=== PATIENT | male | born 1960 | race Caucasian/White ===

== ENCOUNTER 2020-03-11 05:55 | Day surgery (SDC) | payer MEDICARE, OTHER ==
[~2020-03-11] VITALS: Ht 188 cm; Wt 76.2 kg
[~2020-03-11 05:55] MED LIST: AMIO200T68 PO; APIX5TAB PO; ASPE90C TP; ASPI-728 PO; ATOR10TA84 PO; CHLO3800 PO; DOXA2TAB PO; ESCI-8 PO; FLUT220HFA IH; FOLI-130 PO; GABA-1216 PO; IPRA4AER IH; LACT100C2 PO; LEVE500T53 PO; LEVO125 PO; MAGOX PO; MULT-1203 PO; OXYC10TA59 PO; QUET100T PO; RIFAX550 PO; SALI10004 PO; SODIUM CHLORIDE 0.9% 1,000 ML IV ONE; SODIUM CHLORIDE 0.9% 1,000 ML ONE; THIA100T80 PO; TRAZ150 PO; [UNRECOGNIZED DRUG - CODE] PO
[2020-03-11] MEDS ORDERED: SODIUM CHLORIDE 0.9% 1,000 ML IV ONE (06:00)
[2020-03-11 06:49] LABS: COVID AG,FIA SOURCE NASOPHARYNGEAL
[2020-03-11] MEDS ORDERED: SODIUM CHLORIDE 0.9% 1,000 ML ONE (07:13)
== END 2020-03-11 08:50 | disposition home or self-care (01) ==
LOC: SURGERY 05:55
PROVIDERS: ATTEND Internal Medicine Critical Care Medicine
DX: Z43.0 Encounter for attention to tracheostomy (principal); Z53.8 Procedure and treatment not carried out for other reasons; U07.1 COVID-19
CPT/HCPCS: 87426; C9803; J7030 ×2